=== PATIENT | female | born 1985 | race American Indian/Alaskan Native ===

== ENCOUNTER 2018-08-07 20:52 | Emergency (ER) | payer MEDICAID ==
[2018-08-07 20:53] VITALS: BMI 28.6
[2018-08-07 21:10] VITALS: TEMP 99.5
--- NOTE | 2018-08-07 21:31 | C.PDOC ---
History Of Present Illness Patient is a 32 year old female who presents to the ED for evaluation of constipation and 3 days of brownish vaginal discharge. Patient had a on June and went home, but developed a post-operative intra-abdominal infection that resulted in her hospital readmission. Infection resolved and patient was sent home with a Depo-Medrol injection. Patient states that she has not had a bowel movement for the past 2 weeks and in the last few days has been manually disimpacting herself. She also reports abdominal distension, but after the disimpaction her abdomen became softer. She denies any nausea, vomiting, fever, or chills. Time Seen by Provider: 08/07/18 21:25 Chief Complaint (Nursing): Abdominal Pain History Per: Patient History/Exam Limitations: no limitations Onset/Duration Of Symptoms: Days Current Symptoms Are (Timing): Still Present Associated Symptoms: Constipation. denies: Fever, Chills, Nausea, Vomiting Recent travel outside of the [place]: No Additional History Per: Patient Past Medical History Reviewed: Historical Data, Nursing Documentation, Vital Signs Vital Signs: Last Vital Signs Temp 99.5 F 08/07/18 21:03 Pulse 89 08/07/18 21:03 Resp 16 08/07/18 21:03 BP 110/69 08/07/18 21:03 Pulse Ox 99 08/07/18 21:03 Primary Care Provider: FAMILY PROVIDER,NO - Medical History PMH: No Chronic Diseases Denies: Depression Surgical History: No Surg Hx Family History: States: No Known Family Hx - Social History Hx Alcohol Use: No Hx Substance Use: Yes - Immunization History Hx Tetanus Toxoid Vaccination: Yes Hx Influenza Vaccination: Yes Hx Pneumococcal Vaccination: Yes Review Of Systems Constitutional: Negative for: Fever, Chills Gastrointestinal: Positive for: Abdominal Pain (distension ), Constipation. Negative for: Nausea, Vomiting Genitourinary: Positive for: Vaginal Discharge (brown ) Physical Exam - Physical Exam Appears: Non-toxic, No Acute Distress Skin: Warm, Dry Head: Atraumatic, Normacephalic Eye(s): bilateral: Normal Inspection Oral Mucosa: Moist Neck: Normal ROM, Supple Chest: Symmetrical, No Deformity Cardiovascular: Rhythm Regular, No Murmur Respiratory: Normal Breath Sounds, No Rales, No Rhonchi, No Wheezing Gastrointestinal/Abdominal: Soft, Tenderness (No localized tenderness. Patient reports feelign uncomfortable upon palpation, but cannot localize pain ) Neurological/Psych: Oriented x3 ED Course And Treatment - Laboratory Results Result Diagrams: 08/07/18 22:07 08/07/18 22:07 Lab Interpretation: Normal O2 Sat by Pulse Oximetry: 99 (on RA ) Pulse Ox Interpretation: Normal - Other Rad obstructive series X-Ray: Interpreted by Me Interpretation: fecal impaction with increased stool volume through bowel. Progress Note: Patient treated in ED with fleets enema with good results. Medical Decision Making Medical Decision Making: Plan: Labs Obstructive Series UA Disposition Counseled Patient/Family Regarding: Studies Performed, Diagnosis, Need For Followup - Disposition Referrals: [facility] [Outside] Disposition: HOME/ ROUTINE Disposition Time: 23:59 Condition: IMPROVED Instructions: Constipation in Adults Forms: [facility] (Uzbek) - Clinical Impression Clinical Impression: Constipation - Scribe Statement The provider has reviewed the documentation as recorded by the Meetaibciara Valencia All medical record entries made by the Scribe were at my direction and personally dictated by me. I have reviewed the chart and agree that the record accurately reflects my personal performance of the history, physical exam, medical decision making, and the department course for this patient. I have also personally directed, reviewed, and agree with the discharge instructions and disposition.
[2018-08-07 22:11] LABS: BASO # 0.1 K/uL (0.0-0.2); EOS # 0.2 K/uL (0.0-0.7); EOS % 3.1 % (0.0-4.0); HEMOGLOBIN 11.5 g/dL (11.0-16.0); LYMPH # 2.6 K/uL (1.0-4.3); LYMPH % 32.7 % (20.0-40.0); MEAN CELL VOLUME 83.3 fL (81.0-99.0); MEAN CORPUSCULAR HEMOGLOBIN 27.8 pg (27.0-31.0); MEAN CORPUSCULAR HGB CONC 33.3 g/dL (33.0-37.0); MEAN PLATELET VOLUME 7.7 fL (7.2-11.7); MONO # 0.7 K/uL (0.0-0.8); NEUT # 4.2 K/uL (1.8-7.0); NEUT % 54.2 % (50.0-75.0); RBC 4.13 Mil/uL (3.80-5.20); WHITE BLOOD COUNT 7.8 K/uL (4.8-10.8)
[2018-08-07 22:26] LABS: ALB/GLOB RATIO 1.2 (1.0-2.1); ALBUMIN 4.2 g/dL (3.5-5.0); BLOOD UREA NITROGEN 13 mg/dL (7-17); CALCIUM 9.6 mg/dl (8.6-10.4); GFR NON-AFRICAN AMERICAN > 60; LIPASE 285 U/L (23-300)
[2018-08-07 22:29] LABS: ALT/SGPT 15 U/L (9-52); AST/SGOT 24 U/L (14-36)
[2018-08-07 22:31] LABS: HCG,QUALITATIVE URINE NEGATIVE (NEGATIVE)
[2018-08-07 22:33] LABS: SQUAMOUS EPITHIAL 6 /hpf (0-5); URINE BACTERIA FEW (<OCC); URINE BILIRUBIN NEGATIVE (NEGATIVE); URINE BLOOD 3+ (NEGATIVE); URINE CLARITY Hazy (Clear); URINE COLOR RED (YELLOW); URINE GLUCOSE (UA) NORMAL (Normal); URINE LEUKOCYTE ESTERASE TRACE Leu/uL (Negative); URINE PROTEIN 2+ mg/dL (NEGATIVE)
[2018-08-08 01:02] VITALS: BP 110/76; PULSE 88; RESP 20; O2SAT 97
--- NOTE | 2018-08-08 13:34 | RAD ---
Date of service: 08/07/2018 PROCEDURE: Radiographs of the chest and abdomen (obstructive series) HISTORY: Abdominal pain. Negative test (concurrent with this examination). COMPARISON: No prior. TECHNIQUE: AP radiograph of the chest, with upright and supine radiographs of the abdomen. 3 views obtained. FINDINGS: CHEST: Lungs: Clear. Cardiovascular: Normal size heart. No pulmonary vascular congestion. No aortic atherosclerotic calcification present Pleura: No pleural fluid. No pneumothorax. Other findings: None. ABDOMEN AND PELVIS: Bowel: Fecal impaction, constipation. No evidence of mechanical obstruction. Free air: None. Bones: Unremarkable. Other findings: None. IMPRESSION: Constipation/fecal impaction. No mechanical obstruction.
== END 2018-08-08 00:30 | disposition home or self-care (01) ==
LOC: C.ER 20:52
DX: K59.00 Constipation, unspecified (principal)